=== PATIENT | female | born 1935 | race Caucasian/White ===

== ENCOUNTER 2016-08-06 16:07 | Inpatient (IN) | payer MEDICARE, OTHER ==
--- NOTE | ~2016-08-06 | DS ---
Discharge Summary [id number] [place]. [address] NAME: MANJIT KRUEGER : 35 STATUS : DIS IN PAT#: [id number] AGE: 80 ADM/REG DATE : 08/06/16 MR#: [id number] REPORT SERV DATE: 08/16/16 DICTATED BY: TENA CORTEZ DATE: 08/15/16 REPORT STATUS : Draft TRANSCRIBED BY: MODL DATE: 08/15/16 ADMISSION DATE: 08/06/2016 DISCHARGE DATE: 08/15/2016 ADMISSION DIAGNOSES: Acute hypoxic respiratory failure, right hip pain, acute kidney injury, questionable dementia, hypercalcemia. DISCHARGE DIAGNOSES: Acute hypoxic respiratory failure, right hip pain, acute kidney injury, questionable dementia, hypercalcemia, acute interstitial pneumonitis with probable pulmonary fibrosis, . HOSPITAL COURSE: The patient was admitted on the 08/06/2016 with the above-named complaints. In brief, this is a very nice 80-year-old female, who came in with what seemed to be an acute process as she was still quite active and independent prior. Shortness of breath was also fairly acute. By the time the patient was seen on the Pulmonary Consult Service on 08/09/2016, the patient was being treated for acute hypoxic respiratory failure and was placed on antibiotics for community-acquired pneumonia. She was on high-flow nasal cannula which then required Vapotherm and then required BiPAP therapy. The patient was diuresed, initial BNP was 69 which went up to 659 and the patient was aggressively diuresed. The patient had no cardiac symptoms, no overt volume overload on exam. She was eventually intubated on the 08/10/2016 and remained on the ventilator. We continued to treat her for her underlying respiratory failure, son was at the bedside many times, and we checked another CT scan, which the initial CT scan showed diffuse ground glass with traction bronchiectatic airways in the lower lobes concerning for an underlying fibrotic pattern. Her second CT scan actually looked improved, however, we increased the PEEP to 10 to evaluate for any underlying honeycombing or other disease process and, hence it was thought that the improvement in lung architecture was secondary to PEEP. The patient had very high peak pressures and needed to be changed to pressure control ventilation. After multiple family discussions, son and grandson along with the patient's brother felt that she was very independent, she did not want to be placed on the machine according to them. Initially, she was hesitant to going on the ventilator, and finally, we believed that the patient would not want this aggressive life support. The son on 08/14/2016 asked that we remove the ventilator and continue oxygen therapy, I discussed this with the brother who also felt that this would be the patient's wishes. She survived overnight on high-flow nasal cannula by Vapotherm, but due to very stiff lungs, the patient was not able to come off fentanyl drip. Family asked us that the patient would not want this, and we removed the Vapotherm, and the patient was very comfortable, the patient was already made comfort care and the patient with family at the bedside at 11:35 on 08/15/2016. DISPOSITION: . HFQ/MODL Tena Pollock Discharge Summary [address] [address] NAME: MANJIT KRUEGER : 35 STATUS : DIS IN PAT#: [id number] AGE: 80 ADM/REG DATE : 08/06/16 MR#: [id number] REPORT SERV DATE: 08/16/16 DICTATED BY: TENA CORTEZ DATE: 08/15/16 REPORT STATUS : Draft TRANSCRIBED BY: MODL DATE: 08/15/16 MD Jef / [id number] CC: Jamilah Arguelles M.D.
--- NOTE | ~2016-08-06 | CN ---
Consultation Report [facility] [address] [place]. [address] NAME: MIREYA KRUEGER : 35 STATUS : ADM IN PAT#: [id number] AGE: 80 ADM/REG DATE : 08/06/16 MR#: [id number] REPORT SERV DATE: 08/09/16 DICTATED BY: KEI STREETER DATE: 08/08/16 REPORT STATUS : Draft TRANSCRIBED BY: MODL DATE: 08/08/16 CONSULTATION NOTE DATE OF CONSULTATION: 08/08/2016 CHIEF COMPLAINT: Dyspnea and hypoxemic respiratory failure. HISTORY OF PRESENT ILLNESS: Mrs. Mireya Krueger is an 80-year-old cachectic-appearing white female with a past medical history significant for coronary artery disease, status post stenting, chronic kidney disease, who presents to [facility]'s Emergency Room with complaints of worsening shortness of breath as well as right hip pain. It should be noted that the patient has been seen as recently as June of this year at [facility] and has been recently at [facility] undergoing rehab. Mrs. Krueger is not previously established with a Pulmonary Service. She is not usually on supplemental oxygen. She takes no pulmonary medications. She is vague about her past smoking history. She denies symptomatology related to obstructive sleep apnea. She has had a worsening or exercise tolerance as of late. From chart review, it appears that she was hospitalized in June at our [facility] facility. Imaging studies were obtained there. These were primarily pelvic region secondary to some complaints of pain. She did eventually transitioned to [facility] where she participated in some rehab. She did eventually transitioned home. Apparently, she had worsening shortness of breath as well as some hip pain, which prompted her grandson to have her transferred to [facility] for further assessment. Upon arrival in the emergency room, she was found to be normotensive and afebrile. She had good oxygenation on 2 L. [place] [address]. Creatinine was 2.44. She did undergo an arterial blood gas, which revealed a pH of 7.46, PaCO2 of 24.9, PaO2 40.5, and a bicarb of 17.4. She did eventually undergo a chest x-ray, which revealed bilateral pulmonary infiltrates and possible underlying fibrotic changes. Since this time, the patient has been placed on community-acquired antibiotic coverage. Due to her worsening oxygenation status, she has been placed on a Vapotherm and moved to the [facility]. Due to her progressive hypoxemia, she has been referred to the Pulmonary Service for further assessment. It should be noted that, the patient provides a questionable history. However that being said, the patient's main pulmonary complaint today is shortness of breath. This is worse on exertion and relieved by rest. Even with gentle movement within the bed, her oxygenation drops to mid 60s despite 100% FiO2. She does have a dry nonproductive cough. She denies any wheezing in her chest. She denies any known intrinsic lung disease. She denies recent pneumonias. The patient does have known coronary artery disease and has received stents in the past. She currently denies any murmurs, angina, or palpitations. She denies any orthopnea or dependent edema. Consultation Report [address] [place]. [address] NAME: MIREYA KRUEGER : 35 STATUS : ADM IN [facility]#: [id number] AGE: 80 ADM/REG DATE : 08/06/16 MR#: [id number] REPORT SERV DATE: 08/09/16 DICTATED BY: KEI STREETER DATE: 08/08/16 REPORT STATUS : Draft TRANSCRIBED BY: DARRYL DATE: 08/08/16 In regard to constitutional symptoms, she has recently spiked a fever of 101.8. She does have complaints of rigors. She currently denies any abdominal pain or edema. PAST MEDICAL HISTORY: Osteopenia, previous pelvic fracture, coronary artery disease, status post stenting, constipation, chronic kidney disease stage 4, glaucoma. PAST SURGICAL HISTORY: 1. Cataract surgery. 2. Hysterectomy. 3. Coronary stenting. 4. Left knee operation. FAMILY HISTORY: The patient denies a family history of lung disease. SOCIAL HISTORY: The patient is . She has a son and a grandson, who are involved with her healthcare. She previously worked as an aide in a kindergarten class. She denies any known exposures to dust, silica, or asbestos. TOBACCO/ALCOHOL: As previously mentioned, the patient is somewhat vague about her previous smoking history. She denies any recent alcohol or illicit drug use. MEDICATIONS: Pravastatin 40 mg, Brilinta 90 mg, timolol ophthalmic. ALLERGIES: THE PATIENT HAS KNOWN ALLERGY TO PENICILLIN, CARBAPENEM. REVIEW OF SYSTEMS: Complete review of systems was performed with the pertinent positives and negatives contained within the body of the HPI. PHYSICAL EXAMINATION: VITAL SIGNS: Blood pressure is 95/51, heart rate is 101, T-max is 101.8, respiratory rate is 40, SpO2 is 93% on 100%, Vapotherm with a flow of 40%. GENERAL: The patient is a pleasant, well-nourished/well-developed female, who is not currently exhibiting any signs of acute distress. The patient is cachectic. She is demonstrating rigors. Skin: Skin with appropriate texture and turgor. No rashes, lesions, or ulcers. Nails are clear without cyanosis or clubbing. HEENT: Head: Skull is normocephalic/atraumatic. Facies symmetric. No masses or lesions. Eyes: Sclera anicteric, conjunctiva pink without exudates. Extra ocular movements intact. Pupils are equal, round, reactive to light. Ears: Auricles and tragus without pain to palpation. Hearing is grossly intact. Nose: Bilateral nasal patency. Sinuses without tenderness upon palpation. Throat: Dentition. Lips, oral mucosa, tongue, palate, and pharynx pink and moist without lesions. Uvula rises equally on phonation. Tongue midline without deviation. Consultation Report [address] [place]. [address] NAME: MIREYA KRUEGER : 35 STATUS : ADM IN [facility]#: [id number] AGE: 80 ADM/REG DATE : 08/06/16 MR#: [id number] REPORT SERV DATE: 08/09/16 DICTATED BY: KEI STREETER DATE: 08/08/16 REPORT STATUS : Draft TRANSCRIBED BY: MODJoseph DATE: 08/08/16 NECK: Neck supple. Trachea midline. No cervical lymphadenopathy appreciated. THORAX/LUNGS: Thorax is symmetric with equal chest rise. Breath sounds audible through entire field. No rales, wheezes, rhonchi. Inspiratory crackles in the posterior bases, clear apically. CARDIOVASCULAR: Regular rate and rhythm. No murmurs, rubs, or gallops. Anterior chest without thrills, heaves, or lifts. ABDOMEN: Soft. Non-distended, non-tender. Active bowel sounds in all four quadrants. No hepatosplenomegaly noted. PERIPHERAL VASCULAR: No edema. No varicosities, stasis changes, open sores, ulcerations, or phlebitis. 2+ pulses in radial and dorsalis pedis. MUSCULOSKELETAL: Full AROM and PROM in all joints. No evidence of erythema, deformity, or crepitus. NEUROLOGIC: CN II - XII grossly intact. Good muscle bulk and tone bilaterally. Strength 5/5 throughout. PSYCHIATRIC: Patient demonstrates good judgment and insight. Pt is A&O x 3. ACCESSORY DATA: Reveals a BUN of 42, creatinine [place] 1.69[place] [address].8. Procalcitonin is 0.25. BNP is 63.8. Chest x-ray is suggestive of acute failure. Urine antigens for Strep, Legionella are negative. Blood cultures are negative to date. Nasal swab is positive for MSSA. IMPRESSION: 1. Acute hypoxemic respiratory failure. 2. Atypical pneumonia - healthcare-associated pneumonia. 3. Suspect diffuse parenchymal lung disease. 4. Chronic kidney disease. PLAN: 1. The patient does not wish aggressive resuscitative efforts and as such, we will reflect her DNR status within the chart. I did explain to the patient of her tenuous oxygenation status. We will continue to keep her on a Vapotherm. We will write for p.r.n. BiPAP, should she become fatigued and need further support. 2. In regard to the patient's recent temperature along with her abnormal chest x-ray findings, we will expand her antibiotic coverage to include HCAP pathogens. 3. In regard to the patient's probable diffuse parenchymal lung disease, it would be optimal to obtain a CT of the chest to help confirm these changes. That being said, she is too tenuous to move to the CT scanner. We will obtain some baseline labs to rule out a possible connective tissue disease. We may preemptively initiate her on steroid therapy given her current pulmonary status. 4. In regard to her chronic kidney disease, there has been some improvement with fluid boluses. The aforementioned impression and plan has been discussed with Dr. Fuchs, who will follow further recommendations. Consultation Report [id number] [place]. [address] NAME: MIREYA KRUEGER : 35 STATUS : ADM IN [facility]#: [id number] AGE: 80 ADM/REG DATE : 08/06/16 MR#: [id number] REPORT SERV DATE: 08/09/16 DICTATED BY: KEI STREETER DATE: 08/08/16 REPORT STATUS : Draft TRANSCRIBED BY: MODL DATE: 08/08/16 We thank you for this consult and look forward to participating in the care of Mrs. Mireya Krueger. GBS/MODL Kei Streeter PA-C / [id number] CC: Jamilah Arguelles M.D.
--- NOTE | ~2016-08-06 | HP ---
History And Physical [id number] [place]. [address] NAME: MANJIT KRUEGER : 35 STATUS : ADM IN PAT#: [id number] AGE: 80 ADM/REG DATE : 08/06/16 MR#: [id number] REPORT SERV DATE: 08/06/16 DICTATED BY: TYRELL BHARDWAJ DATE: 08/06/16 REPORT STATUS : Draft TRANSCRIBED BY: MODL DATE: 08/06/16 DATE OF ADMISSION: 08/06/2016 IDENTIFYING DATA: An 80-year-old white female, whose PCP is Dr. Nati Silva. CHIEF COMPLAINT: Shortness of breath and right hip pain. HISTORY OF PRESENT ILLNESS: This history of present illness is obtained by talking directly with the patient as well as ER physician, Dr. Hutchinson. I tried to reach the patient's grandson Uzair but only got voice mail. I reviewed [employer] and [employer] and the current ER paper chart. When I asked the patient why she was here, she states it is because she is having pain. She points to her right posterior buttock. She states it has been painful ever since she had a fall back in June and was hospitalized at [facility] from 06/18/2016 through 06/22/2016. At that time, x-rays revealed that she had diffuse osteopenia as well as old pelvic fractures on the left side and CAT scan of the pelvis at that time revealed nondisplaced left L4-L5 transverse process fractures and comminuted minimally displaced fractures of the right superior and inferior pubic rami. The patient moved to [facility] where she reports she stayed for about three to four weeks. She states she has been home for about two weeks. She is not exactly sure when the pain got worse. She thinks it was about three days ago. She states it is difficult for her to get any rest. She denies any further falls. She also states she has been more short of breath. Again, she has a hard time describing it when she got worse but she thinks it is maybe two to three days ago but historically she describes that even getting up to bedside commode makes her very dyspneic. She denies any orthopnea or PND. She states the home health nurse sent her to the emergency room today because they were concerned about her breathing. She does not wear home oxygen. She has not historically have any known pulmonary disease by review of the records or discussion with the patient. In the ER, they were concerned she had acute kidney injury and possibly a pneumonia so asked us to see her for evaluation for hospitalization. I have found a dictation done by Dr. Bright Oviedo, on this patient 09/21/2004. At that time, she was hospitalized because of a fall and his history indicates that patient had been "drinking vodka quite heavily for some long period of time and that she had several falls in the recent past." His note also indicates that she was "found to have the sequelae of chronic alcoholism as well as fracture of her clavicle and incomplete fracture of the body of the second cervical vertebrae." REVIEW OF SYSTEMS: On review of systems, she has had slight cough, mild chest pain, and epigastric pain, intermittent better when she eats. She has severe constipation. She appears to be fairly forgetful, repeating the same comments multiple times through the interview. She states she has had about 15 pounds weight loss in the last six months. She states her appetite is small but she states it has been small all of her life. She denies any fever, recent sputum production, nausea, vomiting, diarrhea, rectal bleeding, melena, dysuria, urinary hesitancy, History And Physical [address] [address] NAME: MANJIT KRUEGER : 35 STATUS : ADM IN [facility]#: [id number] AGE: 80 ADM/REG DATE : 08/06/16 MR#: [id number] REPORT SERV DATE: 08/06/16 DICTATED BY: TYRELL BHARDWAJ DATE: 08/06/16 REPORT STATUS : Draft TRANSCRIBED BY: MODJoseph DATE: 08/06/16 peripheral edema, rash, tick bites, or headaches. PAST MEDICAL HISTORY: She claims allergies to penicillin and carbapenems. She at one point stated she was allergic to aspirin but then tells me she takes aspirin every day. She denies diabetes, hypertension, asthma, COPD, stroke seizure, peptic ulcer, biliary tract disease, liver disease, thyroid disease, cancer. She has reported history of a PCI of her coronary artery in the distant past. She has no recollection of where or who the circulation clerk was. She has a history of glaucoma, stage 4 chronic kidney disease as well as the fall described above. HOME MEDICATIONS: List has not been prepared at this time. PAST SURGICAL HISTORY: She has had prior cataract removal, hysterectomy, coronary stent and left knee operation of some sort. SOCIAL HISTORY: She denies present or past use of tobacco or alcohol. 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 She lives currently with her son and grandson. She states she walks with a cane but mostly with a walker now. FAMILY HISTORY: She really cannot recall much of the parents history as she does recall that her father in his 30s and she thinks it was involving a cancer but she is not certain. As far as her siblings, she states they were seven or eight of them, and she thinks one of them may have had a pneumonia but she is not sure. DIAGNOSTIC DATA: Chest x-ray as a single portable film reveals bilateral very fine diffuse interstitial infiltrates more concentrated in the mid and lower lung hurt than in the upper lung hurt. Heart size is borderline and by comparison to a chest x-ray of 06/18/2016 at that time, it was under-penetrated film but also appeared to have some bibasilar abnormalities. As my interpretation; EKG done today at 1405 hours reveals sinus rhythm, poor R-wave progression. She had better R-wave progression on her EKG of 08/06/2007 per my interpretation. Arterial blood gas done today, I am suspicious that it might be venous; pH 7.46, pCO2 of 25, pO2 of 41, bicarbonate 17.4, saturation 75 that was on room air. The ER doctor told me her sats were better than that. Sodium 139, potassium 4.6, chloride 105, CO2 is 24, BUN 56, creatinine 2.44, glucose is 21, calcium 10.4, albumin is low at 2.8 so that makes me concerned about her total calcium, globulin 4.2, alkaline phosphatase is 122. The rest of the CMP is normal. Her B-natriuretic peptide is 63.8. Her white count is 13.2, hemoglobin 11.5, platelets 385,000, protime 14.8, INR 1.2, PTT is 31.4. PHYSICAL EXAMINATION: VITAL SIGNS: Temp 98, pulse 90, respirations 24, blood pressure 120/70, O2 saturation initially 97% on 2 L, currently 94% on 4.5 L. GENERAL: A well-developed, thin, older female, who appears mildly dyspneic, but in no acute distress. History And Physical [address] [place]. [address] NAME: MANJIT KRUEGER : 35 STATUS : ADM IN PAT#: [id number] AGE: 80 ADM/REG DATE : 08/06/16 MR#: [id number] REPORT SERV DATE: 08/06/16 DICTATED BY: TYRELL BHARDWAJ DATE: 08/06/16 REPORT STATUS : Draft TRANSCRIBED BY: DARRYL DATE: 08/06/16 HEENT: Otherwise, head is atraumatic. Pupils are equal, round, and reactive to light. Extraocular motions are intact. No scleral icterus noted. Ear canals are unremarkable, normal hearing. No inflammatory changes on either side. Nose, noninflamed externally. Septum midline. Nares patent. Mouth is moist. Good gag. No redness of the throat or gums or lips. She has a partial plate on the top. NECK: The neck is supple. No lymph node or thyroid enlargement. The carotids have good pulses. No bruits. LUNGS: With diffuse Velcro rales in the bases and mid lung hurt with mildly increased respiratory effort. HEART: Regular without gallop, click, murmur, or rub. ABDOMEN: Bowel sounds positive. Soft, nondistended, nontender. No masses. No organomegaly. She has a bruit in the mid abdomen. EXTREMITIES: No clubbing, no cyanosis. No edema. No actively inflamed skin or joints. She has very small muscle groups throughout. NEUROLOGIC: She is alert. She is oriented. She tends to repeat herself. She followed simple commands very well. Her motor strength is 2/5 in all four extremities. No Babinski or clonus noted and cranial nerves 2 through 12 grossly normal. ASSESSMENT: 1. Acute hypoxic respiratory failure with diffuse Velcro rales and normal BNP. Differential diagnosis:. a. Interstitial lung disease with pulmonary fibrosis. b. Atypical pneumonic process. c. Much less likely would be a diffuse malignancy with lymphangitic metastases. 2. Complaint of right hip pain ever since fall in 2016. At that time, CT scan did not reveal any fracture to the hip. It did show, however, fractures to the right superior and inferior pubic rami. 3. Acute kidney injury superimposed on stage 4 chronic kidney disease. 4. Questionable dementia. 5. I suspect she has some degree of hypercalcemia given her serum calcium of 10.2 and an albumin of 2.8. 6. History of alcohol abuse. 7. History of glaucoma. 8. History of coronary disease with previous percutaneous coronary intervention. PLAN: She is being admitted to a telemetry unit. Procalcitonin level and urine antigens are being drawn. Blood cultures have been sent. We will empirically put her on antibiotics. We will get a CT scan of her chest. We are going to put her on supplemental oxygen and follow her O2 sats. We will get x-ray of her right pelvis and hip. We will check a bedside swallow. We will check an ionized calcium. Hopefully, the family will be able to fill in some more details about her recent history and alcohol consumption. BARRY/DARRYL History And Physical [address] [address] NAME: MANJIT KRUEGER : 35 STATUS : ADM IN PAT#: [id number] AGE: 80 ADM/REG DATE : 08/06/16 MR#: [id number] REPORT SERV DATE: 08/06/16 DICTATED BY: TYRELL BHARDWAJ DATE: 08/06/16 REPORT STATUS : Draft TRANSCRIBED BY: DARRYL DATE: 08/06/16 Tyrell Bhardwaj M.D. / [id number] CC: Jamilah Botello M.D.
--- NOTE | ~2016-08-06 | OP ---
Record Of Operation [facility] [address] [place]. [address] NAME: MANJIT KRUEGER : 35 STATUS : ADM IN PAT#: [id number] AGE: 80 ADM/REG DATE : 08/06/16 MR#: [id number] REPORT SERV DATE: 08/10/16 DICTATED BY: TENA FUCHS DATE: 08/10/16 REPORT STATUS : Draft TRANSCRIBED BY: MODL DATE: 08/10/16 DATE OF PROCEDURE: 08/10/2016 PROCEDURE: Endotracheal intubation. REASON FOR INTUBATION: Acute hypoxic respiratory failure. PREOPERATIVE DIAGNOSIS: Acute hypoxic respiratory failure. POSTOPERATIVE DIAGNOSIS: Acute hypoxic respiratory failure. PROCEDURE NOTE: The patient was in the IMCU. She was on BiPAP therapy with an oxygen saturation at 96%. However, with any movement, she has quick desaturation and failing Vapotherm, in need of intubation per the patient's wishes. She was placed in correct position. We were able to give her 10 mL of propofol, using a Lewis blade, we attempted intubation. I was able to get a grade 3 view. However, the ET tube did not make the turn, and due to the patient's fast desaturation, we switched over to GlideScope. We were able to get a good view and intubate appropriately. She had significant post intubation pooling in the oropharynx from secretions. This was suctioned and attempted to obtain an OG tube. However, after multiple attempts, we were not able to slide the OG tube past the early part of the esophagus. We then secured the ET tube at 23 at the lip. There were equal breaths bilaterally, condensation of the ET tube and change with the CO2 monitor. Oxygen saturation was 97% on mechanical ventilation prior to transfer. OUTCOME: Successful endotracheal intubation. HFQ/DARRYL Tena Fuchs MD / [id number] CC: Yasir Lima M.D.
[2016-08-06 14:52] LABS: BASOPHILS 0.2 %; BASOPHILS ABSOLUTE 0.02 10/3/uL (0.0-0.16); EOSINOPHILS 0.5 %; EOSINOPHILS ABSOLUTE 0.06 10/3/uL (0.0-0.53); ER CBC TAT 0 Hrs 07 Mins; HEMATOCRIT 33.6 % (36.0-48.0); HEMOGLOBIN 11.5 g/dL (12.0-16.0); IMMATURE GRANULOCYTES 0.5 %; IMMATURE GRANULOCYTES ABSOLUTE 0.06 10/3/uL (0.0-0.11); LYMPHOCYTES 9.5 %; LYMPHOCYTES ABSOLUTE 1.26 10/3/uL (0.67-4.30); MEAN CORPUS HGB CONC 34.2 g/dL (32.0-36.0); MEAN CORPUSCULAR HEMOGLOB 30.6 pg (26.0-34.0); MEAN CORPUSCULAR VOLUME 89.4 fL (80-100); MEAN PLATELET VOLUME 8.6 fL (9.2-13.0); MONOCYTES 8.3 %; NEUTROPHILS ABSOLUTE 10.74 10/3/uL (2.02-8.40); PLATELET COUNT 385 10/3/uL (150-400); RBC DISTRIBUTION WIDTH 15.8 % (12.0-16.0); RED CELL COUNT 3.76 10/6/uL (4.0-5.6); WHITE BLOOD CELLS 13.2 10/3/uL (4.5-10.5)
[2016-08-06 14:53] LABS: MANUAL DIFF NO %
[2016-08-06 14:57] LABS: INTERNATIONAL NORMAL RATI 1.2 UNITS (-); PARTIAL THROMBO TIME 31.4 SEC (22.5-37.2); PROTIME (NOT ORD) 14.8 SEC (12.0-14.5)
[2016-08-06 15:06] LABS: ALBUMIN 2.8 G/DL (3.5-5.0); CHEST PAIN PROFILE TAT 0 Hrs 21 Mins; CHLORIDE, SERUM 105 MMOL/L (96-112); DIRECT BILIRUBIN 0.1 MG/DL (0.0-0.4); GLUCOSE, SERUM 92 MG/DL (60-99); INDIRECT BILIRUBIN(NOT ORDER) 0.2 MG/DL (0.1-0.9); POTASSIUM, SERUM 4.6 MMOL/L (3.5-5.3); SGOT(AST) 25 U/L (5-40); SGPT(ALT) 9 U/L (5-65); SODIUM, SERUM 139 MMOL/L (135-148); TOTAL BILIRUBIN 0.3 MG/DL (0-1.2); TOTAL PROTEIN 8.6 G/DL (6.0-8.5); TROPONIN I <0.02 NG/ML (<0.05)
[2016-08-06 15:07] LABS: ALKALINE PHOSPHATASE 122 U/L (45-117); BUN (BLOOD UREA NITROGEN) 56 MG/DL (6-23); CALCIUM, SERUM 10.2 MG/DL (8.5-10.4); CO2 (CARBON DIOXIDE) 24 MMOL/L (24-34); CREATININE 2.44 MG/DL (0.55-1.02); GFR AFRICAN AMERICAN 21 ML/MIN (>=60); GFR NON AFRICAN AMERICAN 18 ML/MIN (>=60)
[2016-08-06 15:28] LABS: BE (BASE EXCESS) -4.8 MEQ/L (0 +/- 2.5); CARBOXYHEMOGLOBIN 2.2 % (0-3); HCO3 (ACTUAL BICARBONATE) 17.4 MEQ/L (23-27); HEMOBLOGIN CONTENT 12.4 G/DL (12-16); INSTRUMENT SERIAL # 8087; O2 CONTENT 12.9 VOL% (18-24); PCO2 (CO2 TENSION) 25 MMHG (35-45); PO2 (O2 TENSION) 41 MMHG (79-93); SAMPLE Arterial; pH 7.46 (7.37-7.43)
[2016-08-06 15:29] LABS: ALLENS TEST Pos; DEVICE room air; OPERATOR ID 14472
[~2016-08-06 16:07] MED LIST: ASABAYER PO; BEN25 PO; TIMOLOL MAL0.5 % OPH; [UNRECOGNIZED DRUG - OTHER] PO
[2016-08-06] MEDS ORDERED: TIMOLOL MAL OPH (17:35)
[2016-08-06] MEDS ORDERED: LEVAQUIN750 MG PO (17:35)
[2016-08-06] MEDS ORDERED: Pravachol PO (17:35)
[2016-08-06] MEDS ORDERED: LEVAQUIN5T PO (17:35)
[2016-08-06] MEDS ORDERED: *UNABLE1 (17:36)
[2016-08-06 21:30] LABS: TROPONIN I <0.02 NG/ML (<0.05)
[2016-08-06 21:33] LABS: ULTRASENSITIVE TSH 0.823 MCIU/ML (0.358-3.740)
[2016-08-06 22:13] LABS: PROCALCITONIN 0.25 ng/mL (<0.5)
[2016-08-07 04:38] LABS: BASOPHILS 0.1 %; BASOPHILS ABSOLUTE 0.01 10/3/uL (0.0-0.16); EOSINOPHILS 1.1 %; EOSINOPHILS ABSOLUTE 0.12 10/3/uL (0.0-0.53); HEMATOCRIT 30.5 % (36.0-48.0); HEMOGLOBIN 10.3 g/dL (12.0-16.0); IMMATURE GRANULOCYTES 0.5 %; IMMATURE GRANULOCYTES ABSOLUTE 0.06 10/3/uL (0.0-0.11); LYMPHOCYTES ABSOLUTE 1.12 10/3/uL (0.67-4.30); MEAN CORPUS HGB CONC 33.8 g/dL (32.0-36.0); MEAN CORPUSCULAR HEMOGLOB 30.1 pg (26.0-34.0); MEAN CORPUSCULAR VOLUME 89.2 fL (80-100); MEAN PLATELET VOLUME 8.5 fL (9.2-13.0); MONOCYTES 10.1 %; MONOCYTES ABSOLUTE 1.13 10/3/uL (0.21-1.20); NEUTROPHILS 78.2 %; NEUTROPHILS ABSOLUTE 8.76 10/3/uL (2.02-8.40); PLATELET COUNT 341 10/3/uL (150-400); RBC DISTRIBUTION WIDTH 15.6 % (12.0-16.0); RED CELL COUNT 3.42 10/6/uL (4.0-5.6); WHITE BLOOD CELLS 11.2 10/3/uL (4.5-10.5)
[2016-08-07 04:39] LABS: MANUAL DIFF NO %
[2016-08-07 04:40] LABS: ALBUMIN 2.4 G/DL (3.5-5.0); CALCIUM, SERUM 9.3 MG/DL (8.5-10.4); CHLORIDE, SERUM 107 MMOL/L (96-112); CO2 (CARBON DIOXIDE) 24 MMOL/L (24-34); CREATININE 1.97 MG/DL (0.55-1.02); GFR AFRICAN AMERICAN 27 ML/MIN (>=60); GFR NON AFRICAN AMERICAN 23 ML/MIN (>=60); POTASSIUM, SERUM 4.2 MMOL/L (3.5-5.3); SODIUM, SERUM 140 MMOL/L (135-148)
[2016-08-07 04:41] LABS: BUN (BLOOD UREA NITROGEN) 48 MG/DL (6-23); GLUCOSE, SERUM 118 MG/DL (60-99)
[2016-08-07] MEDS ORDERED: ACET500CAP PO (10:27)
[2016-08-07] MEDS ORDERED: TIMOLOL MAL0.5 % OPH (10:27)
[2016-08-07] MEDS ORDERED: PRAVACHOL40 MG PO (10:27)
[2016-08-07] MEDS ORDERED: BRILINTA90 MG PO (10:27)
[2016-08-07] MEDS ORDERED: ASAEC PO (10:28)
[2016-08-07] MEDS ORDERED: FISH OIL300 MG PO (10:28)
[2016-08-08 04:57] LABS: BASOPHILS 0.1 %; BASOPHILS ABSOLUTE 0.01 10/3/uL (0.0-0.16); EOSINOPHILS 3.1 %; EOSINOPHILS ABSOLUTE 0.36 10/3/uL (0.0-0.53); HEMATOCRIT 29.9 % (36.0-48.0); HEMOGLOBIN 9.9 g/dL (12.0-16.0); IMMATURE GRANULOCYTES 0.4 %; IMMATURE GRANULOCYTES ABSOLUTE 0.05 10/3/uL (0.0-0.11); LYMPHOCYTES 11.5 %; LYMPHOCYTES ABSOLUTE 1.35 10/3/uL (0.67-4.30); MEAN CORPUS HGB CONC 33.1 g/dL (32.0-36.0); MEAN CORPUSCULAR HEMOGLOB 30.1 pg (26.0-34.0); MEAN CORPUSCULAR VOLUME 90.9 fL (80-100); MEAN PLATELET VOLUME 8.5 fL (9.2-13.0); MONOCYTES 9.9 %; MONOCYTES ABSOLUTE 1.17 10/3/uL (0.21-1.20); NEUTROPHILS ABSOLUTE 8.82 10/3/uL (2.02-8.40); PLATELET COUNT 337 10/3/uL (150-400); RBC DISTRIBUTION WIDTH 15.6 % (12.0-16.0); RED CELL COUNT 3.29 10/6/uL (4.0-5.6); WHITE BLOOD CELLS 11.8 10/3/uL (4.5-10.5)
[2016-08-08 05:00] LABS: MANUAL DIFF NO %
[2016-08-08 05:12] LABS: A/G RATIO 0.4 (0.7-1.9); ALBUMIN 2.2 G/DL (3.5-5.0); CALCIUM, SERUM 9.1 MG/DL (8.5-10.4); CHLORIDE, SERUM 104 MMOL/L (96-112); CO2 (CARBON DIOXIDE) 25 MMOL/L (24-34); CREATININE 1.69 MG/DL (0.55-1.02); GFR AFRICAN AMERICAN 33 ML/MIN (>=60); GFR NON AFRICAN AMERICAN 28 ML/MIN (>=60); GLOBULIN 4.9 G/DL (2.5-4.1); POTASSIUM, SERUM 4.6 MMOL/L (3.5-5.3); SGOT(AST) 22 U/L (5-40); SODIUM, SERUM 139 MMOL/L (135-148); TOTAL BILIRUBIN 0.4 MG/DL (0-1.2); TOTAL PROTEIN 7.1 G/DL (6.0-8.5)
[2016-08-08 05:20] LABS: ALKALINE PHOSPHATASE 103 U/L (45-117); BUN (BLOOD UREA NITROGEN) 42 MG/DL (6-23); GLUCOSE, SERUM 80 MG/DL (60-99); SGPT(ALT) 6 U/L (5-65)
[2016-08-09 05:23] LABS: BASOPHILS 0 %; EOSINOPHILS 0 %; HEMOGLOBIN 8.6 g/dL (12.0-16.0); IMMATURE GRANULOCYTES 0.3 %; IMMATURE GRANULOCYTES ABSOLUTE 0.03 10/3/uL (0.0-0.11); LYMPHOCYTES 5.3 %; LYMPHOCYTES ABSOLUTE 0.55 10/3/uL (0.67-4.30); MEAN CORPUSCULAR HEMOGLOB 30.3 pg (26.0-34.0); MEAN CORPUSCULAR VOLUME 91.9 fL (80-100); MEAN PLATELET VOLUME 8.7 fL (9.2-13.0); MONOCYTES 1.8 %; MONOCYTES ABSOLUTE 0.19 10/3/uL (0.21-1.20); NEUTROPHILS 92.6 %; NEUTROPHILS ABSOLUTE 9.56 10/3/uL (2.02-8.40); PLATELET COUNT 294 10/3/uL (150-400); RBC DISTRIBUTION WIDTH 15.8 % (12.0-16.0); RED CELL COUNT 2.84 10/6/uL (4.0-5.6); WHITE BLOOD CELLS 10.3 10/3/uL (4.5-10.5)
[2016-08-09 05:32] LABS: HEMATOCRIT 26.1 % (36.0-48.0); MANUAL DIFF NO %
[2016-08-09 05:34] LABS: BUN (BLOOD UREA NITROGEN) 45 MG/DL (6-23); CALCIUM, SERUM 9.2 MG/DL (8.5-10.4); CHLORIDE, SERUM 105 MMOL/L (96-112); CO2 (CARBON DIOXIDE) 22 MMOL/L (24-34); CREATININE 1.77 MG/DL (0.55-1.02); GFR AFRICAN AMERICAN 31 ML/MIN (>=60); GFR NON AFRICAN AMERICAN 27 ML/MIN (>=60); PHOSPHORUS, SERUM 3.2 MG/DL (2.5-4.5); POTASSIUM, SERUM 4.9 MMOL/L (3.5-5.3); SODIUM, SERUM 136 MMOL/L (135-148)
[2016-08-09 05:36] LABS: GLUCOSE, SERUM 137 MG/DL (60-99)
[2016-08-09 05:56] LABS: RHEUMATOID FACTOR QUANT < 10 IU/ML (0-15)
[2016-08-09 12:47] LABS: RETICULOCYTE COUNT 3.1 % (0.5-2.5); RETICULOCYTE COUNT ABSOLUTE 86.3 10/3/uL (20.2-119.8)
[2016-08-09 13:18] LABS: % IRON SAT 11 % (20-50); FERRITIN 349 NG/ML (8-252); IRON BINDING CAPACITY 282 MCG/DL (225-410); IRON, SERUM 30 MCG/DL (35-150)
[2016-08-10 05:36] LABS: CALCIUM, SERUM 9.3 MG/DL (8.5-10.4); CHLORIDE, SERUM 103 MMOL/L (96-112); CO2 (CARBON DIOXIDE) 23 MMOL/L (24-34); CREATININE 2.18 MG/DL (0.55-1.02); GFR AFRICAN AMERICAN 24 ML/MIN (>=60); GFR NON AFRICAN AMERICAN 21 ML/MIN (>=60); PHOSPHORUS, SERUM 3.7 MG/DL (2.5-4.5); POTASSIUM, SERUM 4.9 MMOL/L (3.5-5.3); SODIUM, SERUM 136 MMOL/L (135-148)
[2016-08-10 05:46] LABS: BASOPHILS 0 %; EOSINOPHILS 0 %; HEMOGLOBIN 9.6 g/dL (12.0-16.0); IMMATURE GRANULOCYTES 0.4 %; IMMATURE GRANULOCYTES ABSOLUTE 0.05 10/3/uL (0.0-0.11); LYMPHOCYTES 3.9 %; LYMPHOCYTES ABSOLUTE 0.54 10/3/uL (0.67-4.30); MEAN CORPUSCULAR HEMOGLOB 30.2 pg (26.0-34.0); MEAN CORPUSCULAR VOLUME 91.5 fL (80-100); MEAN PLATELET VOLUME 8.9 fL (9.2-13.0); MONOCYTES ABSOLUTE 0.97 10/3/uL (0.21-1.20); NEUTROPHILS 88.7 %; NEUTROPHILS ABSOLUTE 12.23 10/3/uL (2.02-8.40); PLATELET COUNT 325 10/3/uL (150-400); RBC DISTRIBUTION WIDTH 15.7 % (12.0-16.0); RED CELL COUNT 3.18 10/6/uL (4.0-5.6); WHITE BLOOD CELLS 13.8 10/3/uL (4.5-10.5)
[2016-08-10 05:50] LABS: BUN (BLOOD UREA NITROGEN) 71 MG/DL (6-23); GLUCOSE, SERUM 173 MG/DL (60-99)
[2016-08-10 05:51] LABS: HEMATOCRIT 29.1 % (36.0-48.0); MANUAL DIFF NO %
[2016-08-10 10:30] LABS: ANA TITER <1:40 TITER
[2016-08-10 10:49] LABS: BE (BASE EXCESS) -5.2 MEQ/L (0 +/- 2.5); CARBOXYHEMOGLOBIN 0.3 % (0-3); HCO3 (ACTUAL BICARBONATE) 21.2 MEQ/L (23-27); INSTRUMENT SERIAL # 35151; METHEMOGLOBIN 0.6 % (0-3); MODE CMV; OPERATOR ID 35188; PCO2 (CO2 TENSION) 45 MMHG (35-45); PO2 (O2 TENSION) 303 MMHG (79-93); SAMPLE Arterial; TIDAL VOLUME 350 ML; pH 7.29 (7.37-7.43)
[2016-08-11 04:15] LABS: ALLENS TEST Pos; BE (BASE EXCESS) -3.9 MEQ/L (0 +/- 2.5); CARBOXYHEMOGLOBIN 0.1 % (0-3); HCO3 (ACTUAL BICARBONATE) 20.1 MEQ/L (23-27); HEMOBLOGIN CONTENT 10.5 G/DL (12-16); INSTRUMENT SERIAL # 35151; METHEMOGLOBIN 0.4 % (0-3); MODE CMV; O2 CONTENT 14.7 VOL% (18-24); OPERATOR ID 16503; PCO2 (CO2 TENSION) 33 MMHG (35-45); PO2 (O2 TENSION) 136 MMHG (79-93); SAMPLE Arterial; TIDAL VOLUME 330 ML
[2016-08-11 06:52] LABS: BASOPHILS 0.1 %; BASOPHILS ABSOLUTE 0.01 10/3/uL (0.0-0.16); EOSINOPHILS 0 %; HEMATOCRIT 31.9 % (36.0-48.0); HEMOGLOBIN 10.4 g/dL (12.0-16.0); IMMATURE GRANULOCYTES 0.4 %; IMMATURE GRANULOCYTES ABSOLUTE 0.06 10/3/uL (0.0-0.11); LYMPHOCYTES 3.7 %; LYMPHOCYTES ABSOLUTE 0.57 10/3/uL (0.67-4.30); MEAN CORPUS HGB CONC 32.6 g/dL (32.0-36.0); MEAN CORPUSCULAR HEMOGLOB 29.5 pg (26.0-34.0); MEAN CORPUSCULAR VOLUME 90.6 fL (80-100); MONOCYTES 9.6 %; MONOCYTES ABSOLUTE 1.47 10/3/uL (0.21-1.20); NEUTROPHILS 86.2 %; NEUTROPHILS ABSOLUTE 13.28 10/3/uL (2.02-8.40); PLATELET COUNT 392 10/3/uL (150-400); RBC DISTRIBUTION WIDTH 15.7 % (12.0-16.0); RED CELL COUNT 3.52 10/6/uL (4.0-5.6); WHITE BLOOD CELLS 15.4 10/3/uL (4.5-10.5)
[2016-08-11 06:54] LABS: MANUAL DIFF NO %
[2016-08-11 07:05] LABS: BUN (BLOOD UREA NITROGEN) 74 MG/DL (6-23); CALCIUM, SERUM 9.5 MG/DL (8.5-10.4); CHLORIDE, SERUM 104 MMOL/L (96-112); CO2 (CARBON DIOXIDE) 25 MMOL/L (24-34); CREATININE 1.91 MG/DL (0.55-1.02); GFR AFRICAN AMERICAN 28 ML/MIN (>=60); GFR NON AFRICAN AMERICAN 24 ML/MIN (>=60); GLUCOSE, SERUM 164 MG/DL (60-99); SODIUM, SERUM 138 MMOL/L (135-148)
[2016-08-11 07:06] LABS: POTASSIUM, SERUM 4.6 MMOL/L (3.5-5.3)
[2016-08-12 04:10] LABS: BE (BASE EXCESS) -1.5 MEQ/L (0 +/- 2.5); CARBOXYHEMOGLOBIN 0.1 % (0-3); HCO3 (ACTUAL BICARBONATE) 23.9 MEQ/L (23-27); HEMOBLOGIN CONTENT 10.1 G/DL (12-16); INSTRUMENT SERIAL # 35151; METHEMOGLOBIN 0.5 % (0-3); MODE CMV; O2 CONTENT 13.4 VOL% (18-24); PCO2 (CO2 TENSION) 43 MMHG (35-45); PO2 (O2 TENSION) 75 MMHG (79-93); SAMPLE Arterial; TIDAL VOLUME 330 ML; pH 7.36 (7.37-7.43)
[2016-08-12 07:20] LABS: BASOPHILS 0.1 %; BASOPHILS ABSOLUTE 0.01 10/3/uL (0.0-0.16); EOSINOPHILS 0 %; HEMATOCRIT 27.7 % (36.0-48.0); HEMOGLOBIN 9.2 g/dL (12.0-16.0); IMMATURE GRANULOCYTES 0.4 %; IMMATURE GRANULOCYTES ABSOLUTE 0.05 10/3/uL (0.0-0.11); LYMPHOCYTES 4.2 %; LYMPHOCYTES ABSOLUTE 0.48 10/3/uL (0.67-4.30); MEAN CORPUS HGB CONC 33.2 g/dL (32.0-36.0); MEAN CORPUSCULAR HEMOGLOB 29.6 pg (26.0-34.0); MEAN CORPUSCULAR VOLUME 89.1 fL (80-100); MEAN PLATELET VOLUME 8.7 fL (9.2-13.0); MONOCYTES 10.6 %; MONOCYTES ABSOLUTE 1.21 10/3/uL (0.21-1.20); NEUTROPHILS 84.7 %; NEUTROPHILS ABSOLUTE 9.65 10/3/uL (2.02-8.40); PLATELET COUNT 294 10/3/uL (150-400); RBC DISTRIBUTION WIDTH 15.7 % (12.0-16.0); RED CELL COUNT 3.11 10/6/uL (4.0-5.6); WHITE BLOOD CELLS 11.4 10/3/uL (4.5-10.5)
[2016-08-12 07:22] LABS: MANUAL DIFF NO %
[2016-08-12 07:34] LABS: BUN (BLOOD UREA NITROGEN) 71 MG/DL (6-23); CALCIUM, SERUM 9.1 MG/DL (8.5-10.4); CHLORIDE, SERUM 108 MMOL/L (96-112); CO2 (CARBON DIOXIDE) 25 MMOL/L (24-34); GFR AFRICAN AMERICAN 35 ML/MIN (>=60); GFR NON AFRICAN AMERICAN 30 ML/MIN (>=60); POTASSIUM, SERUM 4.3 MMOL/L (3.5-5.3); SODIUM, SERUM 142 MMOL/L (135-148); VANCOMYCIN TROUGH 15.2 MCG/ML (10.0-20.0)
[2016-08-12 07:35] LABS: GLUCOSE, SERUM 128 MG/DL (60-99)
[2016-08-12 09:31] LABS: PROCALCITONIN 0.45 ng/mL (<0.5)
[2016-08-13 03:46] LABS: BE (BASE EXCESS) -0.8 MEQ/L (0 +/- 2.5); CARBOXYHEMOGLOBIN 0.3 % (0-3); HEMOBLOGIN CONTENT 10.4 G/DL (12-16); INSTRUMENT SERIAL # 35151; METHEMOGLOBIN 0.4 % (0-3); MODE PCV+35; O2 CONTENT 13.9 VOL% (18-24); PCO2 (CO2 TENSION) 40 MMHG (35-45); PO2 (O2 TENSION) 80 MMHG (79-93); SAMPLE Arterial
[2016-08-13 05:09] LABS: HEMOGLOBIN 10.1 g/dL (12.0-16.0); MEAN CORPUS HGB CONC 31.7 g/dL (32.0-36.0); MEAN CORPUSCULAR HEMOGLOB 29.4 pg (26.0-34.0); PLATELET COUNT 295 10/3/uL (150-400); RBC DISTRIBUTION WIDTH 15.8 % (12.0-16.0); RED CELL COUNT 3.44 10/6/uL (4.0-5.6)
[2016-08-13 05:12] LABS: BUN (BLOOD UREA NITROGEN) 86 MG/DL (6-23); CALCIUM, SERUM 9.3 MG/DL (8.5-10.4); CHLORIDE, SERUM 108 MMOL/L (96-112); CO2 (CARBON DIOXIDE) 24 MMOL/L (24-34); CREATININE 1.68 MG/DL (0.55-1.02); GFR AFRICAN AMERICAN 33 ML/MIN (>=60); GFR NON AFRICAN AMERICAN 28 ML/MIN (>=60); GLUCOSE, SERUM 129 MG/DL (60-99); POTASSIUM, SERUM 4.3 MMOL/L (3.5-5.3); SODIUM, SERUM 140 MMOL/L (135-148)
[2016-08-13 05:13] LABS: HEMATOCRIT 31.9 % (36.0-48.0); MANUAL DIFF YES %; MEAN CORPUSCULAR VOLUME 92.7 fL (80-100)
[2016-08-13 07:14] LABS: LYMPHOCYTES 12 %; LYMPHOCYTES ABSOLUTE (CALC) 1.32 10/3/uL (0.67-4.30); MONOCYTES 9 %; MONOCYTES ABSOLUTE (CALC) 0.99 10/3/uL (0.21-1.20); NEUTROPHILS ABSOLUTE (CALC) 8.69 10/3/uL (2.02-8.40); SEGMENTED NEUTROPHIL (0) 79 %; TOTAL NUCLEATED CELLS 100
[2016-08-13 07:15] LABS: PLATELET ESTIMATE ADQ (ADEQUATE); RBC MORPHOLOGY NORM (NORMAL)
== END 2016-08-15 13:17 | disposition expired | DRG 208 ==
LOC: ER 16:07 → 2SO 17:33 → IMCU 18:51 → CCU 08-10 09:46
PROVIDERS: Emergency Medicine; Hospitalist; Internal Medicine; Internal Medicine Pulmonary Disease; Physician Assistant Medical
PROC: 02HV33Z Insertion of Infusion Device into Superior Vena Cava, Percutaneous Approach (ICD-10-PCS; principal; 2016-08-09)
PROC: 5A1945Z Respiratory Ventilation, 24-96 Consecutive Hours (ICD-10-PCS; 2016-08-10)
PROC: 0BH17EZ Insertion of Endotracheal Airway into Trachea, Via Natural or Artificial Opening (ICD-10-PCS; 2016-08-10)
DX: J96.01 Acute respiratory failure with hypoxia (principal); J84.114 Acute interstitial pneumonitis; J18.9 Pneumonia, unspecified organism; J84.10 Pulmonary fibrosis, unspecified; N18.4 Chronic kidney disease, stage 4 (severe); N17.9 Acute kidney failure, unspecified; I95.9 Hypotension, unspecified; R64 Cachexia; Z68.41 Body mass index [BMI] 40.0-44.9, adult; F03.90 Unspecified dementia, unspecified severity, without behavioral disturbance, psychotic disturbance, mood disturbance, and anxiety; Z51.5 Encounter for palliative care; Z66 Do not resuscitate; F10.20 Alcohol dependence, uncomplicated; I25.10 Atherosclerotic heart disease of native coronary artery without angina pectoris; E83.52 Hypercalcemia; Z95.5 Presence of coronary angioplasty implant and graft; E86.1 Hypovolemia; D64.9 Anemia, unspecified
CPT/HCPCS: 31720; 36569; 36600; 71010; 71250; 73502-RT; 74000; 80048; 80053; 80076; 80202; 82040; 82330; 82533; 82607; 82728; 82805; 83540; 83550; 83690; 83735; 83880; 84100; 84145; 84443; 84484; 85025; 85045; 85610; 85730; 86039; 86431; 87040; 87070; 87205; 87449; 87641; 92610-GN; 93005; 94002; 94003; 94640; 94660; 94770; 96365; 96375; 96523; 99291; A9270-GY; C1751; C9113; G0463; G8996-CJ-GN; G8997-CJ-GN; G8998-CJ-GN; J0456; J2920; J2930; J3010; J3370; P9047